=== PATIENT | female | born 1965 | race Caucasian/White ===

== ENCOUNTER 2016-12-30 15:55 | Emergency (ER) | payer OTHER ==
[2016-12-30] MEDS ORDERED: HYDROcodone/Acetaminophen 5/325 mg Tablet ONE (16:16)
[2016-12-30] MEDS ORDERED: Ondansetron ODT 4 MG TAB ONE (16:17)
--- NOTE | 2016-12-30 22:27 | RAD ---
LEFT LEG TWO VIEWS: Date: 12-30-16 FINDINGS: The tibia and fibula appear intact. No fractures of these bones were appreciated. IMPRESSION: No acute finding. POS: HOME
--- NOTE | 2016-12-30 22:27 | RAD ---
LEFT ANKLE THREE VIEWS: Date: 12-30-16 FINDINGS: The ankle itself appears intact. No acute malleolar fractures were seen. There is evidence of an old tiny avulsion at the tip of the medial malleolus. However, there is a nondisplaced fracture present at the edge of the film at the base of the fifth metatarsal. The ankle otherwise was unremarkable. A calcaneal spur was noted. IMPRESSION: 1. Ankle joint intact. 2. Fracture at the base of the fifth metatarsal. POS: HOME
--- NOTE | 2016-12-30 22:29 | RAD ---
LEFT FOOT THREE VIEWS: Date: 12-30-16 FINDINGS: An acute nondisplaced fracture is seen at the base of the fifth metatarsal. The remainder of the bryan t appeared intact. A calcaneal spur was noted. IMPRESSION: Fracture at the base of the fifth metatarsal. POS: HOME
== END 2016-12-30 17:10 | disposition home or self-care (01) ==
LOC: BURERS 15:55
DX: S92.355A Nondisplaced fracture of fifth metatarsal bone, left foot, initial encounter for closed fracture (principal); E11.9 Type 2 diabetes mellitus without complications; F32.9 Major depressive disorder, single episode, unspecified; F41.9 Anxiety disorder, unspecified; X50.1XXA Overexertion from prolonged static or awkward postures, initial encounter
CPT/HCPCS: Q0162

== ENCOUNTER 2017-10-25 11:56 | Emergency (ER) | payer OTHER ==
[2017-10-25 12:24] LABS: Bilirubin Negative (Negative); Blood, Urine Negative (Negative); Clarity Clear (Clear); Glucose, Urine (Dipstick) 500 mg/dL (Negative); Leukocyte Negative (Negative); Nitrite Negative (Negative); Protein, Urine (Dipstick) Negative (Neg-Trace); Specific Gravity, Urine 1.015 (1.005-1.030); Urobilinogen 0.2 mg/dL (0.2-1.0)
[2017-10-25] MEDS ORDERED: Ondansetron ODT 4 MG TAB ONE (12:34)
== END 2017-10-25 12:47 | disposition home or self-care (01) ==
LOC: BURERS 11:56
DX: J11.1 Influenza due to unidentified influenza virus with other respiratory manifestations (principal); E11.9 Type 2 diabetes mellitus without complications; K21.9 Gastro-esophageal reflux disease without esophagitis; Z79.899 Other long term (current) drug therapy
CPT/HCPCS: 36416; 81003; 99283; Q0162

== ENCOUNTER 2017-11-18 09:22 | Outpatient (CLI) | payer OTHER ==
--- NOTE | 2017-11-18 12:09 | CT ---
CT BRAIN WITHOUT CONTRAST: HISTORY: Migraine with aura and without status migrainosus. FINDINGS: No evidence of infarct, hemorrhage, midline shift, or abnormal extraaxial fluid collections are seen. The ventricular size is normal and the basilar cisterns are patent. The bony calvarium is intact. The visualized paranasal sinuses and mastoid air cells are well aerated. IMPRESSION: No CT evidence of acute intracranial process. POS: [facility]
== END 2017-11-18 09:23 | disposition home or self-care (01) ==
LOC: BURCT 09:22
PROVIDERS: ATTEND Family Medicine
DX: G43.109 Migraine with aura, not intractable, without status migrainosus (principal)
CPT/HCPCS: 70450

== ENCOUNTER 2018-12-22 11:40 | Outpatient (CLI) | payer OTHER ==
--- NOTE | 2018-12-22 18:12 | RAD ---
LEFT SHOULDER THREE VIEWS: 12/22/18 No fracture, dislocation, or periarticular calcification was seen. The AC joint is normal in width. T here is a small rounded lucency in the distal clavicle with a sclerotic rim measuring 8 mm in size. I ts appearance is radiographically benign. There is a smooth ovoid density in the left lung that measures about 2.3 x 1.3 cm. Its shape makes it seem unlikely to be a nipple shadow. It might be well to obtain a two view chest x-ray to get a seco nd look at it. This may ultimately require a CT though its fairly smooth margins are prognostically g ood. IMPRESSION: 1. No acute shoulder findings. 2. 8 mm cystic area with sclerotic margins in the distal clavicle. Significance is felt to be ve ry low. 3. 2.3 cm ovoid mass density in the left lung just to the left of the heart. Further workup advi sed. A two view chest x-ray should be done next. Code T POS: HOME
== END 2018-12-22 11:41 | disposition home or self-care (01) ==
LOC: BURRAD 11:40
PROVIDERS: ATTEND Family Medicine
DX: M79.622 Pain in left upper arm (principal); R91.8 Other nonspecific abnormal finding of lung field